=== PATIENT | male | born 2000 | race Caucasian/White ===

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

== ENCOUNTER 2020-08-23 15:24 | Emergency (ER) | payer OTHER ==
[~2020-08-23] VITALS: Ht 171.4 cm; Wt 95.3 kg
[2020-08-23 15:33] VITALS: BP_SYST 121
--- NOTE | 2020-08-23 15:33 | NUR ---
Patient to ER bed 03 to gown for evaluation. Side rails up.
--- NOTE | 2020-08-23 15:35 | NUR ---
Patient arrived in the ED c/o redness, pain, swelling and discharge on the right eye that started yesterday. Denied any chest pain or shortness of breath. Denied any fevers, chills, nausea or vomiting. Patient is alert and oriented x4, respirations even and unlabored, speaking in full sentences, and ambulating with a steady gait. VSS, pain level 3/10. Informed of the approximate wait time. Instructed to notify ED staff for any changes in condition or worsening of symptoms while waiting to be seen by an ED provider. Patient verbalized understanding.
--- NOTE | 2020-08-23 15:57 | NUR ---
ER Dr. Martinez at bedside examining patient.
[2020-08-23] MEDS ORDERED: cefTRIAXone 1 GM VIAL IM ONE (16:00)
[2020-08-23] MEDS ORDERED: IBUPROFEN 800 MG TABLET PO ONE (16:00)
[2020-08-23 16:30] VITALS: BP_SYST 121
--- NOTE | 2020-08-23 16:30 | NUR ---
Patient given written and verbal discharge instructions and verbalizes understanding. ER MD discussed with patient the results and treatment provided. Patient in stable condition. ID arm band removed. Rx of CIPRODEX AND MOTRIN given. Patient educated on pain management and to follow up with PMD. Pain Scale 0/10. Opportunity for questions provided and answered. Medication side effect fact sheet provided.
== END 2020-08-23 16:30 | disposition home or self-care (01) ==
LOC: SED 15:24
DX: H01.003 Unspecified blepharitis right eye, unspecified eyelid (principal); J45.909 Unspecified asthma, uncomplicated
CPT/HCPCS: 96372; 99283